=== PATIENT | male | born 1970 | race Caucasian/White ===

== ENCOUNTER → 2017-07-12 | Outpatient (CLI) | payer OTHER ==
--- NOTE | 2017-07-12 15:01 | Diagnostic Imaging Report ---
PROCEDURE: MRI lumbar spine. TECHNIQUE: Multiplanar, multisequence MRI of the lumbar spine was performed without contrast. INDICATION: Lower back and leg pain with heavy lifting. FINDINGS: Good alignment of vertebral bodies. Body height is well maintained. There is a large fatty lesion in the midportion of the L2 vertebral body consistent with hemangioma. There is sclerosis and edema along the endplates of L3-L4 and L4-L5 and L5-S1 consistent with degenerative disc disease. The conus medullaris appears normal. L1-L2: The disc appears normal. No significant facet or ligamentous hypertrophy. L2-L3: There is desiccation of the disc with mild disc herniation, paramedian to the right causing mild encroachment upon the lateral recess and neural foramen. There is mild to moderate facet and ligamentous hypertrophy as well causing some stenosis. L3-L4: There is central disc herniation. There does appear to be an extruded component extending inferiorly along the L4 vertebral body in the midline. Fragment measures approximately 8 x 10 mm. This is causing considerable encroachment upon the thecal sac and does extend into the right lateral recess. Marked encroachment is seen upon the right nerve root sheath. There is considerable posterior facet and ligamentous hypertrophy as well. L4-L5: There is desiccation of disc with small central disc protrusion. Mild facet and ligamentous hypertrophy. L5-S1: Disc shows normal contour. Moderate posterior facet and ligamentous hypertrophy present. No central canal stenosis. The paraspinal soft tissues appear normal. IMPRESSION: 1. Disc herniation L3-L4 with large extruded component extending inferiorly along the L4 vertebral body and extending to the right of midline into the L4 neural foramen. 2. There is multilevel degenerative disc disease and facet disease causing [id number] encroachment upon the lateral recesses and neural foramen from L2 through S1. Dictated by: Dictated on workstation # [id number]
== END ==
LOC: RAD 13:37
PROVIDERS: ATTEND Physician Assistant
DX: M51.26 Other intervertebral disc displacement, lumbar region (principal); M51.36 Other intervertebral disc degeneration, lumbar region
CPT/HCPCS: 72148

== ENCOUNTER 2017-09-09 11:20 | Emergency (ER) | payer OTHER ==
[~2017-09-09] VITALS: Ht 172.7 cm; Wt 104.3 kg
--- OUTSIDE RECORDS SUMMARY | 2017-09-09 11:24 | XMS REPORT | Continuity of Care Document ---
Author Author [facility] Organization [facility] Address Unknown Phone Unavailable Allergies Medications Problems Procedures Results Encounters ACCT No. Visit Date/Time Discharge Status Pt. Type Provider Facility Loc./Unit Complaint [id number] 10/02/2013 10:21:35 10/02/2013 23: 59:59 CLS Outpatient DAVION GHOSH
--- NOTE | 2017-09-09 11:38 | ED Fever ---
History of Present Illness General Stated Complaint: FEVER,CLAMMING-POST OP [id number] Source: patient, spouse Exam Limitations: no limitations History of Present Illness Time seen by provider: 11:30 Initial Comments Patient presents with 2 days of fever, malaise, anorexia. About 2 weeks ago just prior to he was started on Bactrim and then one week ago rifampin. The reason the rifampin came in later is because the pharmacy did not have it in stock at the time. These were ordered secondary to some pain and swelling and drainage from the wound on his back where he had a back surgery done 6 weeks prior to the day. The wound was completely healed over but then started to swell up and turn red and had a little bit of drainage. Because the holidays he had not had a chance to be examined by Dr. EVERETT the orthopedic surgeon. Because of the fever, malaise and anorexia he called his surgeon who told him to come to the ER for evaluation. Patient's had a total of 3 back surgeries and a gallbladder removed. He has no significant medical problems does not smoke or take any medications. He does drink every other day or so beer. Allergies and Home Medications Allergies Coded Allergies: No Known Drug Allergies (Unverified , 09/09/17) Home Medications Rifampin 300 Mg Capsule, (Reported) Sulfamethoxazole/Trimethoprim 1 Each Tablet, (Reported) Constitutional: chills, diaphoresis, fever, malaise EENTM: No ear discharge, No ear pain, No eye pain, No tearing, No vision loss Respiratory: No cough, No short of breath Cardiovascular: No chest pain, No palpitations Gastrointestinal: No abdominal pain, No constipation, No diarrhea, No nausea, No vomiting Genitourinary: No discharge, No dysuria, frequency, No hesitancy, No incontinence, No pain Musculoskeletal: see HPI, No back pain, No joint swelling Skin: No pruritus, No rash Psychiatric/Neurological: Denies Headache, Numbness (right anterior oliveros chronically numb), Denies Paresthesia Past Eybjypg-Grymtw-Fdsiak Hx Patient Social History Alcohol Use: Occasionally Uses Alcohol Beverage of Choice: Beer Recreational Drug Use: No Smoking Status: Never a Smoker Recent Foreign Travel: No Contact w/Someone Who Travel: No Physical Exam Vital Signs Vital Sign - Last 12Hours 09/09/17 11:24 Temp 99.3 Pulse 94 Resp 18 B/P (MAP) 117/86 (96) Pulse Ox 94 O2 Delivery Room Air Capillary Refill : General Appearance: WD/WN, no apparent distress Eyes: Bilateral Eye Normal Inspection, Bilateral Eye PERRL, Bilateral Eye EOMI HEENT: PERRL/EOMI, normal ENT inspection, TMs normal, pharynx normal Neck: non-tender, full range of motion, supple, normal inspection Respiratory: chest non-tender, lungs clear, normal breath sounds, no respiratory distress, no accessory muscle use Cardiovascular: normal peripheral pulses, regular rate, rhythm, no edema Gastrointestinal: normal bowel sounds, non tender, soft, No hepatomegaly Extremities: normal range of motion, non-tender, normal inspection, normal capillary refill Neurologic/Psychiatric: alert, normal mood/affect, oriented x 3 Skin: normal color, warm/dry, other (small 1 cm long opening nondraining along the lumbar surgical incision. Palpable seroma/hematoma/abscess that is nontender 2-3 cm around the incision.) Progress/Results/Core Measures Suspected Sepsis SIRS Temperature: Pulse: Respiratory Rate: Laboratory Tests 09/09/17 11:44: White Blood Count 6.2 Blood Pressure / Mean: Laboratory Tests 09/09/17 11:44: Creatinine 1.09, Platelet Count 193, Total Bilirubin 0.6 Results/Orders Lab Results Laboratory Tests Test 09/09/17 11:44 09/09/17 12:55 09/09/17 13:58 Range/Units White Blood Count 6.2 4.3-11.0 10^3/uL Red Blood Count 5.21 4.35-5.85 10^6/uL Hemoglobin 15.5 13.3-17.7 G/DL Hematocrit 44 40-54 % Mean Corpuscular Volume 85 80-99 FL Mean Corpuscular Hemoglobin 30 25-34 PG Mean Corpuscular Hemoglobin Concent 35 32-36 G/DL Red Cell Distribution Width 13.0 10.0-14.5 % Platelet Count 193 130-400 10^3/uL Mean Platelet Volume 9.4 7.4-10.4 FL Neutrophils (%) (Auto) 79 H 42-75 % Lymphocytes (%) (Auto) 13 12-44 % Monocytes (%) (Auto) 7 0-12 % Eosinophils (%) (Auto) 1 0-10 % Basophils (%) (Auto) 0 0-10 % Neutrophils # (Auto) 4.9 1.8-7.8 X 10^3 Lymphocytes # (Auto) 0.8 L 1.0-4.0 X 10^3 Monocytes # (Auto) 0.4 0.0-1.0 X 10^3 Eosinophils # (Auto) 0.1 0.0-0.3 10^3/uL Basophils # (Auto) 0.0 0.0-0.1 10^3/uL Erythrocyte Sedimentation Rate 12 0-15 MM/HR Sodium Level 134 L 135-145 MMOL/L Potassium Level 3.5 L 3.6-5.0 MMOL/L Chloride Level 101 98-107 MMOL/L Carbon Dioxide Level 22 21-32 MMOL/L Anion Gap 11 5-14 MMOL/L Blood Urea Nitrogen 9 7-18 MG/DL Creatinine 1.09 0.60-1.30 MG/DL Estimat Glomerular Filtration Rate > 60 BUN/Creatinine Ratio 8 Glucose Level 99 70-105 MG/DL Calcium Level 8.5 8.5-10.1 MG/DL Total Bilirubin 0.6 0.1-1.0 MG/DL Aspartate Amino Transf (AST/SGOT) 32 5-34 U/L Alanine Aminotransferase (ALT/SGPT) 29 0-55 U/L Alkaline Phosphatase 67 40-136 U/L C-Reactive Protein High Sensitivity 18.62 H 0.00-0.50 MG/DL Total Protein 8.4 H 6.4-8.2 GM/DL Albumin 3.6 3.2-4.5 GM/DL D-Dimer 1.93 H 0.00-0.49 UG/ML Urine Color YELLOW Urine Clarity CLEAR Urine pH 6 5-9 Urine Specific [place] 1.015 L 1.016-1.022 Urine Protein 2+ H NEGATIVE Urine Glucose (UA) NEGATIVE NEGATIVE Urine Ketones 2+ H NEGATIVE Urine Nitrite POSITIVE H NEGATIVE Urine Bilirubin 2+ H NEGATIVE Urine Urobilinogen 8 H NORMAL MG/DL Urine Leukocyte Esterase 2+ H NEGATIVE Urine RBC (Auto) 2+ H NEGATIVE Urine RBC NONE /HPF Urine WBC 2-5 /HPF Urine Squamous Epithelial Cells NONE /HPF Urine Crystals NONE /LPF Urine Bacteria NEGATIVE /HPF Urine Casts PRESENT /LPF Urine Hyaline Casts 2-5 H /LPF Urine Mucus LARGE H /LPF Urine Culture Indicated YES Urine Opiates Screen POSITIVE H NEGATIVE Urine Oxycodone Screen NEGATIVE NEGATIVE Urine Methadone Screen NEGATIVE NEGATIVE Urine Propoxyphene Screen NEGATIVE NEGATIVE Urine Barbiturates Screen NEGATIVE NEGATIVE Ur Tricyclic Antidepressants Screen NEGATIVE NEGATIVE Urine Phencyclidine Screen NEGATIVE NEGATIVE Urine Amphetamines Screen NEGATIVE NEGATIVE Urine Methamphetamines Screen NEGATIVE NEGATIVE Urine Benzodiazepines Screen POSITIVE H NEGATIVE Urine Cocaine Screen NEGATIVE NEGATIVE Urine Cannabinoids Screen NEGATIVE NEGATIVE Micro Results Microbiology 09/09/17 Influenza Types A,B Antigen (GARCÍA) - Final, Complete My Orders Orders - FRANCIA HENDERSON Aspirin Chewable Tablet (Baby Aspirin Ch (09/09/17 11:45) Nitroglycerin 0.4 Mg Btl 25's (Nitrostat (09/09/17 11:45) Cbc With Automated Diff (09/09/17 11:40) Comprehensive Metabolic Panel (09/09/17 11:40) Fibrin Degradation Products (09/09/17 11:40) Drug Screen Stat (Urine) (09/09/17 11:40) Ua Culture If Indicated (09/09/17 11:40) Influenza A And B Antigens (09/09/17 11:40) Chest Pa/Lat (2 View) (09/09/17 11:40) Saline Lock/Iv-Start (09/09/17 11:40) Ct Lumbar Spine Wo (09/09/17 12:12) Ct Angio Chest W (09/09/17 13:46) Lactated Ringers (Lr 1000 Ml Iv Solution (09/09/17 13:46) Iohexol Injection (Omnipaque 350 Mg/Ml 1 (09/09/17 14:15) Ns (Ivpb) (Sodium Chloride 0.9% Ivpb Bag (09/09/17 14:15) Urine Culture (09/09/17 13:58) Erythrocyte Sedimentation Rate (09/09/17 15:31) Hs C Reactive Protein (09/09/17 15:31) Blood Culture (09/09/17 15:50) Medications Given in ED Current Medications Medications Dose Ordered Sig/Terese Route Start Time Stop Time Status Last Admin Dose Admin Iohexol 125 ml ONCE ONCE IV 09/09/17 14:15 09/09/17 14:16 DC 09/09/17 14:22 125 ML Lactated Ringer's 1,000 ml @ 0 mls/hr Q0M ONCE IV 09/09/17 13:46 09/09/17 13:48 DC 09/09/17 14:05 1,000 MLS/HR Sodium Chloride 100 ml ONCE ONCE IV 09/09/17 14:15 09/09/17 14:16 DC 09/09/17 14:22 80 ML Vital Signs/I&O Vital Sign - Last 12Hours 09/09/17 11:24 Temp 99.3 Pulse 94 Resp 18 B/P (MAP) 117/86 (96) Pulse Ox 94 O2 Delivery Room Air Capillary Refill : Progress Note #1: Time: 11:54 Progress Note Vital signs are normal. We'll get some recent laboratory and a chest x-ray as well as a nasal pharyngeal flu swab. We'll discuss with orthopedics appropriate imaging. Progress Note #2: Time: 13:40 Progress Note D-dimer is 1.92. He has had a surgery 6 weeks ago possible PE could be there to explain some of his fevers and shortness of breath. We'll get a CT angiogram. Diagnostic Imaging Diagonstic Imaging: Xray Plain Films/CT/US/NM/MRI: chest (2v) Comments NAME: YESENIA TORRES [employer] REC#: [id number] PHYSICIAN: FRANCIA HENDERSON MD CC: ADITHYA SAMANIEGO MD; FRANCIA HENDERSON Page 1 of 1 RADIOLOGY REPORT VIA [facility], [facility]. [place], [place] CC: ADITHYA SAMANIEGO MD; FRANCIA HENDERSON Page 1 of 1 RADIOLOGY REPORT NAME: YESENIA TORRES [employer] REC#: [id number] PT STATUS: REG ER : 1970 PHYSICIAN: FRANCIA HENDERSON MD ADMIT DATE: 09/09/17/ER Signed Date of Exam: 09/09/17 CHEST PA/LAT (2 VIEW) PA and lateral views of the chest Indication: Fever Findings: The lungs are clear. The heart size is normal. There is no effusion or pneumothorax The mediastinum and nery appear unremarkable. Impression: Unremarkable study. Dictated by: Dictated on workstation # [id number] Dict: 09/09/17 1251 Trans: 09/09/17 1251 Interpreted by: ADITHYA SAMANIEGO MD Electronically signed by: ADITHYA SAMANIEGO MD 09/09/17 1251 Reviewed: Reviewed by Me Diagonstic Imaging: CT Plain Films/CT/US/NM/MRI: other (lumbar spine without contrast) Comments [facility]. [place], [place] NAME: YESENIA TORRES [facility] REC#: [id number] PT STATUS: REG ER : 1970 PHYSICIAN: FRANCIA HENDERSON MD ADMIT DATE: 09/09/17/ER Draft Date of Exam:09/09/17 CT LUMBAR SPINE WO PROCEDURE: CT lumbar spine without contrast. TECHNIQUE: Multiple contiguous axial images were obtained through the lumbar spine without the use of intravenous contrast. Sagittal and coronal reformations were then performed. INDICATION: Fever. Back surgery 5 weeks ago. FINDINGS: There is straightening of the lumbar spine curvature in the upper to mid lumbar spine. The vertebral body heights are preserved. There is a right hemilaminectomy performed at L3/4 level. There is posterior soft tissue edema and mild swelling with no definitive fluid collection component. There is no obvious fluid collection within the spinal canal although this is limited assessment. There is evidence of a prominent disc herniation at the L3/4 level with caudal migration. There is prominent lower lumbar spine facet arthropathy. The neural foramina demonstrate severe stenosis on the left side at L4/5 and moderate stenosis at L3/4 and L5/S1 on the left. On the right side, there is moderate severe stenosis at L3/4 foramen and moderate stenosis at L4/5 and L5/S1. No compression fracture. There is a mild disc height loss at L2-3 level. Minimal posterior osteophytes at L2/3 and L3/4 are seen. IMPRESSION: 1. There is soft tissue fullness at the operative bed posteriorly at L3/4 level with right hemilaminectomy noted. No definitive significant fluid collection, hematoma or abscess is seen. 2. Prominent disc herniation with caudal migration at the L3/ 4. There are lumbar spine facet arthropathy with foramina stenosis most prominent at L4/L5 level on the left. Dictated on workstation # [id number] Dict: 09/09/17 1253 Trans: 09/09/17 1344 [facility] [id number] Interpreted by: ADITHYA SAMANIEGO MD Electronically signed by: Reviewed: Reviewed by Me Diagonstic Imaging: CT (angiogram) Plain Films/CT/US/NM/MRI: chest Reviewed: Reviewed by Me Consults Consults : Consulting Physician: JUAN EVERETT MD Consults Notes Dr. EVERETT reviewed imaging and the patient and he would like to see with a CRP and ESR are. If they're not too wildly elevated the plan would be to send the patient home on some more Bactrim that he will call in from his office. He will have the patient follow up outpatient with him. We'll go ahead and obtain 2 blood cultures at this time. 1620: Urine looks infected. He was to continue the Bactrim in case there is a wound infection given the high CRP. The low ESR reassures him. We can use whatever antibiotic we would choose for the urine. Second generation cephalosporin maybe a better option since the Bactrim is clearly not working. Departure Impression Impression: Primary Impression: Urinary tract infection Qualified Codes: N30.01 - Acute cystitis with hematuria Additional Impression: Wound infection after surgery Qualified Codes: T81.4XXA - Infection following a procedure, initial encounter Disposition: HOME, SELF-CARE Condition: Stable Departure-Patient Inst. Decision time for Depature: 16:24 Referrals: JUAN EVERETT MD (PCP/Family) Primary Care Physician Patient Instructions: Urinary Tract Infection, Adult (DC) Add. Discharge Instructions: Please obtain the probiotics and take one capsule twice a day for the duration of antibiotics. Continue taking the rifampin and Bactrim per your surgeon's instructions. Start the Omnicef 3 mg twice a day for 7 days. If you begin to experience abdominal pain, nausea vomiting, or diarrhea you should follow up with your surgeon or return to the ER for evaluation. Drink copious amounts of water to try and flush your bladder. Scripts Cefdinir (Cefdinir) 300 Mg Capsule 300 MG PO BID for 7 Days, #14 CAP 0 Refills Prov: FRANCIA HENDERSON 09/09/17 Work/School Note: Work Release Form Date Seen in the Emergency Department: Sep 09, 2017 Return to Work: Sep 10, 2017 Restrictions: No Restrictions Copy Copies To 1: JUAN EVERETT MD, TITUS J Sep 09, 2017 11:37
[2017-09-09] MEDS ORDERED: ASPIRIN 81 MG CHEW (CHILDREN'S ASA) PO ONE (11:45)
[2017-09-09] MEDS ORDERED: NITROGLYCERIN 0.4 MG SL TABS BTL 25'S SL PRN (11:45)
[2017-09-09 11:56] LABS: BASOPHILS % (AUTO) 0 % (0-10); EOSINOPHILS # (AUTO) 0.1 10^3/uL (0.0-0.3); EOSINOPHILS % (AUTO) 1 % (0-10); LYMPHOCYTES # (AUTO) 0.8 X 10^3 (1.0-4.0); LYMPHOCYTES % (AUTO) 13 % (12-44); MEAN CORPUSCULAR HEMOGLOBIN 30 PG (25-34); MEAN CORPUSCULAR HGB CONC 35 G/DL (32-36); MEAN CORPUSCULAR VOLUME 85 FL (80-99); MEAN PLATELET VOLUME 9.4 FL (7.4-10.4); MONOCYTES # (AUTO) 0.4 X 10^3 (0.0-1.0); MONOCYTES % (AUTO) 7 % (0-12); NEUTROPHILS # (AUTO) 4.9 X 10^3 (1.8-7.8); NEUTROPHILS % (AUTO) 79 % (42-75); PLATELET COUNT 193 10^3/uL (130-400); RED BLOOD COUNT 5.21 10^6/uL (4.35-5.85); WHITE BLOOD COUNT 6.2 10^3/uL (4.3-11.0)
[2017-09-09] MEDS ORDERED: SULF-222 (11:58)
[2017-09-09] MEDS ORDERED: RIFA300C3 (11:58)
[2017-09-09 12:18] LABS: ALANINE AMINOTRANSFERASE 29 U/L (0-55); ALBUMIN 3.6 GM/DL (3.2-4.5); ANION GAP 11 MMOL/L (5-14); ASPARTATE AMINO TRANSFERASE 32 U/L (5-34); BILIRUBIN,TOTAL 0.6 MG/DL (0.1-1.0); BLOOD UREA NITROGEN 9 MG/DL (7-18); BUN/CREATININE RATIO 8; CALCIUM 8.5 MG/DL (8.5-10.1); CARBON DIOXIDE 22 MMOL/L (21-32); CHLORIDE 101 MMOL/L (98-107); CREATININE SERUM 1.09 MG/DL (0.60-1.30); GFR ESTIMATED > 60; GLUCOSE 99 MG/DL (70-105); POTASSIUM 3.5 MMOL/L (3.6-5.0); SODIUM 134 MMOL/L (135-145); TOTAL PROTEIN 8.4 GM/DL (6.4-8.2)
--- NOTE | 2017-09-09 12:54 | Diagnostic Imaging Report ---
PA and lateral views of the chest Indication: Fever Findings: The lungs are clear. The heart size is normal. There is no effusion or pneumothorax The mediastinum and nery appear unremarkable. Impression: Unremarkable study. Dictated by: Dictated on workstation # [id number]
--- NOTE | 2017-09-09 13:44 | Diagnostic Imaging Report ---
PROCEDURE: CT lumbar spine without contrast. TECHNIQUE: Multiple contiguous axial images were obtained through the lumbar spine without the use of intravenous contrast. Sagittal and coronal reformations were then performed. INDICATION: Fever. Back surgery 5 weeks ago. FINDINGS: There is straightening of the lumbar spine curvature in the upper to mid lumbar spine. The vertebral body heights are preserved. There is a right hemilaminectomy performed at L3/4 level. There is posterior soft tissue edema and mild swelling with no definitive fluid collection component. There is no obvious fluid collection within the spinal canal although this is limited assessment. There is evidence of a prominent disc herniation at the L3/4 level with caudal migration. There is prominent lower lumbar spine facet arthropathy. The neural foramina demonstrate severe stenosis on the left side at L4/5 and moderate stenosis at L3/4 and L5/S1 on the left. On the right side, there is moderate severe stenosis at L3/4 foramen and moderate stenosis at L4/5 and L5/S1. No compression fracture. There is a mild disc height loss at L2-3 level. Minimal posterior osteophytes at L2/3 and L3/4 are seen. IMPRESSION: 1. There is soft tissue fullness at the operative bed posteriorly at L3/4 level with right hemilaminectomy noted. No definitive significant fluid collection, hematoma or abscess is seen. 2. Prominent disc herniation with caudal migration at the L3/4. 3. There are lumbar spine facet arthropathy with foramina stenosis most prominent at L4/L5 level on the left. Dictated by: Dictated on workstation # [id number]
[2017-09-09] MEDS ORDERED: LACTATED RINGERS 1,000 ML IV ONE (13:46)
[2017-09-09 14:02] LABS: KETONES,URINE 2+ (NEGATIVE); LEUKOCYTE ESTERASE ,URINE 2+ (NEGATIVE); NITRITE,URINE POSITIVE (NEGATIVE); PH,URINE 6 (5-9); PROTEIN,URINE 2+ (NEGATIVE); UROBILINOGEN,URINE 8 MG/DL (NORMAL)
[2017-09-09] MEDS ORDERED: IOHEXOL 350 MG/ML 150 ML (OMNIPAQUE 350) VIAL IV ONE (14:15)
[2017-09-09] MEDS ORDERED: NS 100 ML (IVPB) BAG IV ONE (14:15)
[2017-09-09 14:24] LABS: BILIRUBIN,URINE 2+ (NEGATIVE)
--- NOTE | 2017-09-09 15:00 | Diagnostic Imaging Report ---
PROCEDURE: CT angiography of the chest with contrast. TECHNIQUE: Multiple contiguous axial images were obtained through the chest after uneventful bolus administration of intravenous contrast. Reconstructed CTA MIP acquisitions were also performed. INDICATION: Fever. 125 mL of Omnipaque 350 is administered intravenously. FINDINGS: There is good opacification of the pulmonary arteries with no filling defects to suggest pulmonary embolism. The thoracic aorta is normal in caliber. No periaortic significantly enlarged lymph node is seen. The mediastinum, nery and the axilla demonstrate no significant lymphadenopathy. The heart size is normal. No pericardial or pleural effusion. The lungs demonstrate no significant consolidation or mass. Sections in the upper abdomen demonstrate cholecystectomy clips. There is mild hepatic steatosis. The osseous structures demonstrate mild degenerative changes at the mid thoracic spine. IMPRESSION: 1. No PE or aortic dissection. No significant pulmonary consolidation. 2. Mild hepatic steatosis. Dictated by: Dictated on workstation # [id number]
[2017-09-09] MEDS ORDERED: CEFD300C3 PO (16:34)
[2017-09-09 16:38] VITALS: BP 138/84
== END 2017-09-09 16:40 | disposition home or self-care (01) ==
LOC: EDUNIT# 11:20 → ER 11:22
DX: T81.4XXA Infection following a procedure, initial encounter (principal); N39.0 Urinary tract infection, site not specified
CPT/HCPCS: 36415; 71020; 71275; 72131; 80053; 80306; 81000; 85025; 85379; 85652; 86141; 87040; 87088; 87804